=== PATIENT | male | born 1985 | race Caucasian/White ===

== ENCOUNTER 2018-05-13 13:34 | Emergency (ER) | payer OTHER ==
[~2018-05-13] VITALS: Ht 182.9 cm; Wt 83.0 kg
== END 2018-05-13 18:01 | disposition home or self-care (01) ==
LOC: ER 13:34
DX: S60.212A Contusion of left wrist, initial encounter (principal); S60.211A Contusion of right wrist, initial encounter; M79.632 Pain in left forearm; V19.3XXA Pedal cyclist (driver) (passenger) injured in unspecified nontraffic accident, initial encounter; Y93.55 Activity, bike riding; Y92.413 State road as the place of occurrence of the external cause; Y99.8 Other external cause status